=== PATIENT | female | born 1985 | race Caucasian/White ===

== ENCOUNTER 2021-10-13 20:01 | Emergency (ER) | payer OTHER, MEDICAID ==
[2021-10-14] MEDS ORDERED: CYCLOBENZAPRINE10 MG PO (03:39)
[2021-10-14] MEDS ORDERED: NAPROSYN500 MG PO (03:39)
== END 2021-10-14 04:00 | disposition home or self-care (01) ==
LOC: ER1 20:01
DX: S09.90XA Unspecified injury of head, initial encounter (principal); S16.1XXA Strain of muscle, fascia and tendon at neck level, initial encounter; S39.012A Strain of muscle, fascia and tendon of lower back, initial encounter; V49.40XA Driver injured in collision with unspecified motor vehicles in traffic accident, initial encounter; Y92.410 Unspecified street and highway as the place of occurrence of the external cause
CPT/HCPCS: 70450; 72100; 72125; 99284

== ENCOUNTER → 2021-11-15 | Outpatient (CLI) | payer OTHER ==
[~2021-11-15] MED LIST: CYCLOBENZAPRINE10 MG PO; NAPROSYN500 MG PO
== END ==
LOC: RAD 16:58
DX: M54.2 Cervicalgia (principal); M54.6 Pain in thoracic spine; M47.812 Spondylosis without myelopathy or radiculopathy, cervical region
CPT/HCPCS: 72050; 72070

== ENCOUNTER 2022-05-10 09:17 | Emergency (ER) | payer OTHER ==
[~2022-05-10 09:17] MED LIST changes: +IBUPROFEN800 MG PO
[2022-05-10 09:50] LABS: HEMOGLOBIN 13.7 gm/dl (12.3-15.3); RED BLOOD COUNT 4.32 M/UL (4.00-5.10); WHITE BLOOD COUNT 8.8 K/UL (4.5-11.0)
[2022-05-10 10:22] LABS: BUN/CREATININE RATIO 12 (0-10)
== END 2022-05-10 12:35 | disposition home or self-care (01) ==
LOC: ER1 09:17
PROVIDERS: Student in an Organized Health Care Education/Training Program
DX: R07.9 Chest pain, unspecified (principal); I10 Essential (primary) hypertension
CPT/HCPCS: 71045; 80053; 82550; 82553; 84484; 84703; 85025; 85379; 96374; 99285; J1885

== ENCOUNTER → 2022-06-06 | Outpatient (CLI) | payer OTHER | LOC: HEART 5 13:26 | DX: R07.9 Chest pain, unspecified (principal); I07.1 Rheumatic tricuspid insufficiency | CPT/HCPCS: 93306 ==